=== PATIENT | female | born 1985 | race Caucasian/White ===

== ENCOUNTER 2019-07-02 09:39 | Emergency (ER) | payer MEDICAID, SELFPAY ==
[2019-07-02 09:40] VITALS: BP 116/79; PULSE 111; RESP 17; TEMP 36.1; O2SAT 91; BMI 33.4
--- NOTE | 2019-07-02 09:53 | CT_ITS ---
STUDY: CT ABDOMEN AND PELVIS WITHOUT CONTRAST REASON FOR EXAM: Female, 34 years old. Nausea and vomiting x3 days. Headache. RADIATION DOSAGE (If Supplied By Facility): CTDIvol = ( 16.95 ) mGy, DLP = ( 1249.06 ) mGycm TECHNIQUE: Transaxial images were obtained from the dome of the diaphragm to the symphysis pubis without oral contrast, and without intravenous contrast. Sagittal and coronal images were reconstructed. Individualized dose optimization techniques were used for this CT. COMPARISON: None. FINDINGS: Groundglass infiltrates in both lungs. The visualized portions of the heart are within normal limits. Mild diffuse fatty infiltration of the liver. No visible gallbladder is presumably from laparoscopic cholecystectomy. Normal spleen. Normal pancreas. Normal bilateral adrenal glands. Normal right kidney. Normal left kidney. Normal visualized stomach. Normal small intestine. Normal colon. The appendix is visualized and appears normal. Normal abdominal aorta. Normal inferior vena cava. Normal retroperitoneum. Normal empty urinary bladder. Normal anteverted uterus and ovaries. Normal abdominal wall. Moderately pronounced L4-L5 disc space height narrowing with degenerative vacuum phenomenon. Mild right L4-L5 degenerative facet arthropathy. Normal remaining osseous elements. CT/Abdomen/Pelvis W IV Cont ONLY IMPRESSION: 1. Nonspecific pneumonia in both lungs. 2. Mild diffuse hepatic steatosis. 3. No suspicious mass or acute abnormality in the abdomen and pelvis. 4. Moderately pronounced L4-L5 disc space height narrowing with degenerative vacuum phenomenon and mild right L4-L5 degenerative facet arthropathy Electronically Signed: Garcia Singer MD at 11:46 EDT , Service support ,
[2019-07-02] MEDS: Ondansetron 4 MG/2 ML Vial IV (10:05)
[2019-07-02] MEDS: 0.9% Normal Saline 1,000 ML 1000 ML IV (10:05)
[2019-07-02 10:23] LABS: Absolute Lymphocyte Count 0.91 X10^3/uL (0.83-4.51); Absolute Neutrophil Count 10.3 X10^3/uL (2.0-7.7); Basophil# 0.02 X10^3/uL; Basophil% 0.2 % (0-1); Eosinophil# 0.14 X10^3/uL; Eosinophils% 1.2 % (0-5); Hematocrit 39.5 % (37-47); Hemoglobin 13.4 g/dL (12.0-15.0); Lymphocyte # 0.91 X10^3/ul (4.0); Lymphocyte % 7.8 % (19-41); Mean Corp Hgb Conc 33.9 g/dL (32-36); Mean Corpuscular Hgb 30.5 pg (27.0-32.0); Mean Platelet Vol. 9.8 fl (6.2-12.0); Monocyte# 0.24 X10^3/uL; Monocyte% 2.1 % (0-10); NRBC Flagged by Analyzer 0 % (0-5); Neutrophil # 10.25 X10^3/uL (2.7-7.7); Neutrophil % 88.3 % (47-70); Platelet Count 507 K/mm3 (150-450); RBC Distribution Width CV 12.9 % (11.6-14.6); RBC Distribution Width SD 42.5 fl (35.1-43.9); Red Blood Count 4.39 M/mm3 (4.2-5.4); White Blood Count 11.6 K/mm3 (4.4-11.0)
[2019-07-02 10:39] LABS: ALB/GLOB Ratio 0.6 RATIO (0.9-2.4); AST(SGOT) 33 U/L (15-37); Alanine Aminotransfer ALT/SGPT 33 U/L (13-56); Albumin, Serum 2.9 g/dL (3.2-5.0); Alkaline Phosphatase 123 U/L (45-117); Anion Gap 8 (5-15); BUN 8 mg/dL (7-18); Calcium,Total 9.3 mg/dL (8.5-10.1); Chloride 104 mmol/L (98-107); Creatinine, Serum 0.66 mg/dL (0.55-1.02); EST Glomerular Filtration Rate 108 mL/min (>60); Est Glom Filt Rate - Afr Amer 130 mL/min (>60); Estimated Creatinine Clearance 115.69 ml/min; Globulin 5.1 g/dL (2.2-4.2); Glucose 122 mg/dL (74-106); Lipase 62 U/L (73-393); Potassium 3.1 mmol/L (3.5-5.1); Sodium Level 139 mmol/L (136-145)
[2019-07-02 10:49] LABS: Red Blood Cells-Urine 0 SEEN /hpf (0-5)
[2019-07-02 10:56] LABS: Color, Urine Brown (Yellow); Glucose, Dipstick Normal (Normal); Ketone-Dipstick 50 mg/dl (Negative); Leukocyte Esterase-Dipstick 100 /ul (Negative); Nitrite-Dipstick Positive (Negative); Occult Blood-Urine 25 /ul (Negative); Protein-Dipstick 100 mg/dl (Negative); Urine Clarity Clear (Clear); Urine Urobilinogen 4 mg/dl (Normal)
[2019-07-02 11:00] LABS: Internal QC Validated? YES +Cl - CLEAR BKGD; Pregnancy, Urine Negative Negative; Urine Bilirubin Dipstick 3 mg/dL (Negative)
[2019-07-02 11:06] LABS: White Blood Cells 5-10 SEEN /hpf (0-5)
[2019-07-02 11:07] LABS: Bacteria 1+ /hpf (None Seen); Mucous, Urine 2+ /hpf (<or=2+); Squamous Epithelial Cells - UA 5-10 SEEN /hpf (5-10)
[2019-07-02 11:57] VITALS: BP 137/97; PULSE 100; RESP 16; O2SAT 96
--- NOTE | 2019-07-02 12:03 | RAD_ITS ---
STUDY: X-RAY CHEST REASON FOR EXAM: Female, 34 years old. Cough. Nausea and vomiting x1 week. Headache. TECHNIQUE: PA and lateral views. COMPARISON: None. FINDINGS: No obvious confluent infiltrates. Mild pulmonary hypoinflation. Mildly prominent pulmonary interstitial markings in both lower lobes. They are groundglass groundglass airspace disease rather than interstitial infiltrates seen on CT of the abdomen. There is no demonstrated pleural abnormality. Normal size heart. Normal mediastinum and christin. Normal visualized pulmonary arteries. Normal visualized aortic arch and descending thoracic aorta. Normal visualized thoracic spine. Normal visualized ribs, clavicles, and shoulders. There is no demonstrated abnormality of the visualized soft tissue structures of the upper abdomen. RAD/Chest PA and Lateral IMPRESSION: Prominent pulmonary interstitial lung markings are not interstitial infiltrates when correlated with CT of the abdomen. They are ill-defined groundglass airspace disease in the lower lobes rather than interstitial pneumonitis. Exact etiology is unknown. Baseline high resolution CT chest may be helpful for further evaluation. Electronically Signed: Garcia Singer MD at 13:15 EDT , Service support ,
--- NOTE | 2019-07-02 12:50 | ED.VIS.GEN ---
History of Present Illness Chief Complaint: Nausea/Vomiting Informant: Patient Onset: Days Narrative: Patient presents to the ED with nausea and vomiting for the last 4 days. She states she cannot keep anything down. She really denies any abdominal pain. She states she has not had a bowel movement in the last 3 days. She has not taken anything for symptomatic relief. She does have a history of cholecystectomy but no other abdominal surgeries. She states she has been fighting URI symptoms recently and was recently diagnosed with upper respiratory infection at an urgent care. She denies any fever, chills, urinary symptoms. Past Medical History - Allergies and Home Meds Allergies/Adverse Reactions: Allergies No Known Allergies Allergy (Verified 07/02/19 09:54) Primary Care Physician: Cyndy Cedeño MD [Primary Care Provider] - Smoking Status: Current every day smoker Review of Systems General: Denies: Chills, Fever, Sweats Eyes: Denies: Visual changes - bilaterally, Diplopia ENT: Reports: Rhinorrhea. Denies: Sore throat Cardiovascular: Denies: Chest pain, Palpitations Respiratory: Denies: Dyspnea, Cough, Dyspnea on exertion Gastrointestinal: Reports: Nausea, Vomiting, Constipation. Denies: Abdominal pain, Diarrhea, Melena, Hematochezia Genitourinary: Denies: Dysuria, Hematuria, Frequency Musculoskeletal: Denies: Back pain, Extremity Pain Skin: Denies: Rash, Wounds Neurological: Denies: Headache, Weakness, Numbness Physical Exam Vital Signs/Narrative: Vital Signs Temp Pulse Resp BP Pulse Ox 07/02/19 11:57 100 16 137/97 H 96 07/02/19 09:40 96.9 F L 111 H 17 116/79 91 General: Well nourished, Well developed, - - Patient actively vomiting. Head: Normocephalic, Atraumatic Eyes: Perrl, EOMI ENT: Moist mucous membranes, No rhinorrhea Neck: Supple, Nontender Cardiovascular: Regular rate, Regular rhythm, No murmurs Respiratory: No distress, CTA bilaterally, Chest nontender Abdomen: Soft, Nontender, Nondistended, Normal bowel sounds Back: Nontender, Normal Inspection Extremities: Nontender, No edema Skin: Normal color, No rash Neurological: Alert, Oriented x3, Cranial nerves II-XII grossly intact, Normal Strength, Normal Sensation Psychological: Normal affect, Normal Mood Diagnostic/Tx/Re-eval - Medical Decision Making Patient presents to the ED with nausea and vomiting for the last 4 days. She appears well and nontoxic. She was given IV fluids and Zofran for initial symptomatic relief. Laboratory studies are fairly unremarkable other than a mild hypokalemia of 3.1. Urinalysis is nitrite positive. Urine culture is pending. CT abdomen/pelvis only shows groundglass appearance of bilateral basilar lungs. Radiologist read this as suggesting pneumonia. X-ray of chest was done which shows no evidence of infiltrate. At this time, I think it is safe for the patient be discharged home and treated for her urinary tract infection. She was educated her URI symptoms are most likely viral in etiology. She was given an albuterol inhaler, Keflex, and Zofran for symptomatic relief. She is also given a work excuse. She was advised to follow-up with PCP if symptoms persist or worsen. She was educated on signs/symptoms to return to the ED. She is provided discharge instructions and agreeable to plan. Impression: Urinary tract infection. Upper respiratory infection, viral. Nausea and vomiting. Disposition: Home stable ED Disposition - Plan for ED Patient: Disposition: Home or Assisted Living Diagnosis: Urinary tract infection, Upper respiratory infection Instructions: Urinary Tract Infections in Women Prescriptions: Cephalexin [Keflex] 500 mg PO Q8 #21 cap Prescription Printed Albuterol Aerosols [Ventolin Aerosols] 2.5 mg INHALATION Q4H PRN PRN #20 vial PRN Reason: Wheezing Prescription Printed Ondansetron [Zofran Odt] 4 mg PO Q8H PRN PRN #20 tab PRN Reason: Nausea Prescription Printed Referrals: Cyndy Cedeño MD [Primary Care Provider] -
== END 2019-07-02 13:23 | disposition home or self-care (01) ==
PROVIDERS: Emergency Provider Physician Assistant; Family Provider Internal Medicine; PCP Internal Medicine
DX: N39.0 Urinary tract infection, site not specified (principal); J06.9 Acute upper respiratory infection, unspecified; R11.2 Nausea with vomiting, unspecified; F17.200 Nicotine dependence, unspecified, uncomplicated
CPT/HCPCS: 71046; 74177; 80053; 81001; 81025; 83690; 85025; 96361; 96374; 99284; J7030; Q9967; A4216; J2405

== ENCOUNTER 2020-03-03 15:12 | Emergency (ER) | payer MEDICAID, SELFPAY ==
[2020-03-03 15:13] VITALS: BP 143/102; PULSE 84; RESP 16; TEMP 36.6; O2SAT 97; BMI 34.6
--- NOTE | 2020-03-03 15:22 | ED.VIS.GEN ---
History of Present Illness Chief Complaint: Nausea/Vomiting Informant: Patient Onset: Days - 4 days ago Current Severity: Moderate Maximum Severity: Moderate Narrative: Patient presents with 4-day history of nausea and vomiting. She denies diarrhea. She reports having chills but no fever. She denies abdominal pain but she states that she feels queasy. She has had a prior cholecystectomy. She currently has a control implant but states she is been bleeding off and on throughout the entire month of February. Her implant is due to be changed soon. - Past Medical History (1) Hx of cholecystectomy Status: Chronic Past Medical History - Allergies and Home Meds Allergies/Adverse Reactions: Allergies prochlorperazine [From Compazine] Adverse Reaction (Verified 03/03/20 15:15) NEEDS FOLLOW-UP Primary Care Physician: Cyndy Cedeño MD [NON-STAFF] - Prior records reviewed: Yes Smoking Status: Current every day smoker Review of Systems General: Reports: Chills. Denies: Fever Eyes: Denies: Visual changes - bilaterally ENT: Denies: Bilateral ear pain Cardiovascular: Denies: Chest pain Respiratory: Denies: Dyspnea, Cough Gastrointestinal: Reports: Nausea, Vomiting. Denies: Abdominal pain, Diarrhea Genitourinary: Denies: Dysuria Musculoskeletal: Denies: Swelling, Extremity Pain Skin: Denies: Rash Neurological: Denies: Headache Hematologic: Denies: Easy bruising, Easy bleeding Allergy: Denies: Uticaria Physical Exam Vital Signs/Narrative: Vital Signs Temp Pulse Resp BP Pulse Ox 03/03/20 15:13 98 F 84 16 143/102 H 97 Inital Vital Signs reviewed: Yes General: Well nourished, Well developed Head: Normocephalic Cardiovascular: Regular rate, Regular rhythm Respiratory: No distress, CTA bilaterally Abdomen: Soft, Nontender, Hypoactive bowel sounds Skin: Normal color Neurological: Alert, Oriented x3 Psychological: Normal affect Diagnostic/Tx/Re-eval Laboratory Last Values WBC 11.0 K/mm3 (4.4-11.0) 03/03/20 15:28 RBC 5.08 M/mm3 (4.2-5.4) 03/03/20 15:28 Hgb 15.3 g/dL (12.0-15.0) H 03/03/20 15:28 Hct 45.8 % (37-47) 03/03/20 15: MCV 90.2 fL (81-99) 03/03/20 15: MCH 30.1 pg (27.0-32.0) 03/03/20 15: MCHC 33.4 g/dL (32-36) 03/03/20 15: RDW Std Deviation 40.2 fl (35.1-43.9) 03/03/20: RDW Coeff of Blanca 12.2 % (11.6-14.6) 03/03/20: Plt Count 374 K/mm3 (150-450) 03/03/20 15: MPV 10.2 fl (6.2-12.0) 03/03/20: Immature Gran % (Auto) 0.300 % (0.0-0.9) 03/03/20: Neut % (Auto) 57.6 % (47-70) 03/03/20: Lymph % (Auto) 32.0 % (19-41) 03/03/20: [place] % (Auto) 6.8 % (0-10) 03/03/20 15: Eos % (Auto) 2.9 % (0-5) 03/03/20: Baso % (Auto) 0.4 % (0-1) 03/03/20: Absolute Neuts (auto) 6.3 X10^3/uL (2.0-7.7) 03/03/20 15: Absolute Lymphs (auto) 3.51 X10^3/uL (0.83-4.51) 03/03/20: Nucleated RBC % 0 % (0-5) 03/03/20 15: Sodium 138 mmol/L (136-145) 03/03/20 15: Potassium 3.3 mmol/L (3.5-5.1) L 03/03/20: Chloride 105 mmol/L (98-107) 03/03/20 15: Carbon Dioxide 27.0 mmol/L (21.0-32.0) 03/03/20 15:28 Anion Gap 6 (5-15) 03/03/20 15:28 BUN 11 mg/dL (7-18) 03/03/20 15:28 Creatinine 0.75 mg/dL (0.55-1.02) 03/03/20 15:28 Estim Creat Clear Calc 101.81 ml/min 03/03/20 15:28 Est GFR (MDRD) Af Amer 113 mL/min (>60) 03/03/20 15: Est GFR (MDRD) Non-Af 93 mL/min (>60) 03/03/20 15: BUN/Creatinine Ratio 14.7 RATIO (10-20) 03/03/20 15: Glucose 100 mg/dL (74-106) 03/03/20 15: Calcium 9.3 mg/dL (8.5-10.1) 03/03/20 15: Total Bilirubin 0.70 mg/dL (0.20-1.00) 03/03/20 15: Direct Bilirubin 0.24 mg/dL (0.00-0.30) 03/03/20 15:28 AST 77 U/L (15-37) H 03/03/20 15: ALT 115 U/L (13-56) H 03/03/20 15:28 Alkaline Phosphatase 69 U/L (45-117) 03/03/20 15:28 Total Protein 8.1 g/dL (6.4-8.2) 03/03/20 15: Albumin 4.3 g/dL (3.2-5.0) 03/03/20 15: Globulin 3.8 g/dL (2.2-4.2) 03/03/20 15: Lipase 73 U/L (73-393) 03/03/20 15:28 Serum , Qual NEGATIVE Negative 03/03/20 15:28 Urine Color Yellow (Yellow) 03/03/20 16:00 Urine Clarity Clear (Clear) 03/03/20 16:00 Urine pH 7.0 (5.0 - 8.0) 03/03/20 16:00 Ur Specific [place] 1.015 (1.002-1.030) 03/03/20 16:00 Urine Protein 30 mg/dl (Negative) H 03/03/20 16:00 Urine Glucose (UA) Normal mg/dl (Normal) 03/03/20 16:00 Urine Ketones 150 mg/dl (Negative) H 03/03/20 16:00 Urine Occult Blood Negative /ul (Negative) 03/03/20 16:00 Urine Nitrite Negative (Negative) 03/03/20 16:00 Urine Bilirubin 1 mg/dL (Negative) H 03/03/20 16:00 Urine Urobilinogen 8 mg/dl (Normal) H 03/03/20 16:00 Ur Leukocyte Esterase 25 /ul (Negative) H 03/03/20 16:00 Urine RBC 0-5 SEEN /hpf (0-5) 03/03/20 16:00 Urine WBC 0-5 SEEN /hpf (0-5) 03/03/20 16:00 Ur Squamous Epith Cells 0-5 SEEN /hpf (5-10) 03/03/20 16:00 Urine Bacteria 1+ /hpf (None Seen) 03/03/20 16:00 Urine Mucus 2+ /hpf (<or=2+) 03/03/20 16:00 - Medical Decision Making Patient was given Zofran and a liter of IV fluids. On repeat evaluation she does feel significantly improved. She begin a prescription for Zofran at home. ED Disposition - Plan for ED Patient: Disposition: Home or Assisted Living Diagnosis: Vomiting Instructions: ED Nausea Vomiting Adult Prescriptions: Ondansetron [Zofran Odt] 4 mg PO Q8H PRN PRN #10 tab PRN Reason: Nausea Transmission Status: Pending to [id number] Referrals: Cyndy Cedeño MD [NON-STAFF] - 3-5 Days if not improving
[2020-03-03] MEDS: 0.9% Normal Saline 1,000 ML 1000 ML IV (15:30)
[2020-03-03] MEDS: Ondansetron 4 MG/2 ML Vial IV (15:30)
[2020-03-03 15:38] LABS: Absolute Lymphocyte Count 3.51 X10^3/uL (0.83-4.51); Absolute Neutrophil Count 6.3 X10^3/uL (2.0-7.7); Basophil# 0.04 X10^3/uL; Basophil% 0.4 % (0-1); Eosinophil# 0.32 X10^3/uL; Eosinophils% 2.9 % (0-5); Hematocrit 45.8 % (37-47); Hemoglobin 15.3 g/dL (12.0-15.0); Lymphocyte # 3.51 X10^3/ul (4.0); Mean Corp Hgb Conc 33.4 g/dL (32-36); Mean Corpuscular Hgb 30.1 pg (27.0-32.0); Mean Corpuscular Volume 90.2 fL (81-99); Mean Platelet Vol. 10.2 fl (6.2-12.0); Monocyte# 0.74 X10^3/uL; Monocyte% 6.8 % (0-10); NRBC Flagged by Analyzer 0 % (0-5); Neutrophil # 6.32 X10^3/uL (2.7-7.7); Neutrophil % 57.6 % (47-70); Platelet Count 374 K/mm3 (150-450); RBC Distribution Width CV 12.2 % (11.6-14.6); RBC Distribution Width SD 40.2 fl (35.1-43.9); Red Blood Count 5.08 M/mm3 (4.2-5.4)
[2020-03-03 15:47] LABS: Internal QC Validated? YES +Cl - CLEAR BKGD; Pregnancy, Serum, hCG Quali. NEGATIVE Negative
[2020-03-03 15:53] LABS: AST(SGOT) 77 U/L (15-37); Alanine Aminotransfer ALT/SGPT 115 U/L (13-56); Albumin, Serum 4.3 g/dL (3.2-5.0); Alkaline Phosphatase 69 U/L (45-117); Anion Gap 6 (5-15); BUN 11 mg/dL (7-18); BUN/Creat Ratio 14.7 RATIO (10-20); Bilirubin, Direct 0.24 mg/dL (0.00-0.30); Calcium,Total 9.3 mg/dL (8.5-10.1); Chloride 105 mmol/L (98-107); Creatinine, Serum 0.75 mg/dL (0.55-1.02); EST Glomerular Filtration Rate 93 mL/min (>60); Est Glom Filt Rate - Afr Amer 113 mL/min (>60); Estimated Creatinine Clearance 101.81 ml/min; Globulin 3.8 g/dL (2.2-4.2); Glucose 100 mg/dL (74-106); Lipase 73 U/L (73-393); Potassium 3.3 mmol/L (3.5-5.1); Protein, Total 8.1 g/dL (6.4-8.2); Sodium Level 138 mmol/L (136-145)
[2020-03-03 16:16] LABS: Color, Urine Yellow (Yellow); Glucose, Dipstick Normal (Normal); Leukocyte Esterase-Dipstick 25 /ul (Negative); Nitrite-Dipstick Negative (Negative); Occult Blood-Urine Negative /ul (Negative); Protein-Dipstick 30 mg/dl (Negative); Specific Gravity, Urine 1.015 (1.002-1.030); Urine Clarity Clear (Clear); Urine Urobilinogen 8 mg/dl (Normal)
[2020-03-03 16:18] LABS: Urine Bilirubin Dipstick 1 mg/dL (Negative)
[2020-03-03 16:21] LABS: Ketone-Dipstick 150 mg/dl (Negative)
[2020-03-03 16:49] LABS: Bacteria 1+ /hpf (None Seen); Mucous, Urine 2+ /hpf (<or=2+); Red Blood Cells-Urine 0-5 SEEN /hpf (0-5); Squamous Epithelial Cells - UA 0-5 SEEN /hpf (5-10); White Blood Cells 0-5 SEEN /hpf (0-5)
[2020-03-03 17:18] VITALS: BP 114/80
== END 2020-03-03 17:19 | disposition home or self-care (01) ==
PROVIDERS: Emergency Provider Emergency Medicine
DX: R11.2 Nausea with vomiting, unspecified (principal); F17.200 Nicotine dependence, unspecified, uncomplicated
CPT/HCPCS: 80048; 80076; 81001; 83690; 84703; 85025; 96361; 96374; 99283; J7030; A4216; J2405